=== PATIENT | female | born 1940 | race Two or more races ===

== ENCOUNTER 2019-05-26 12:06 | Emergency (ER) | payer MEDICARE, OTHER ==
[~2019-05-26] VITALS: Wt 110.0 kg
[~2019-05-26 12:06] MED LIST: ACET500C5 PO; AMLO5TAB4; BENA20TA65; CARI350T; CELE200C; CEPH-443 PO; CLON-379; DICL100G9; DONE10TA7; DULO60CA6; GABA100C; HYDR-3980 PO; LIDO700A6; MELO15TA30; METO-407; NAR2I NS; NEOM28OI2 TP; OLAN5TAB19; RTPRO5; SENN-8; SIMV20TA; SOLI5TAB2; TRIA1CAP56; VIC
[2019-05-26 12:22] VITALS: BP 147/73; PULSE 89; RESP 18
== END 2019-05-26 12:43 | disposition home or self-care (01) ==
LOC: FTE 12:06 → E/R 12:43
DX: Z48.01 Encounter for change or removal of surgical wound dressing (principal); J45.909 Unspecified asthma, uncomplicated; I10 Essential (primary) hypertension; I25.10 Atherosclerotic heart disease of native coronary artery without angina pectoris
CPT/HCPCS: 99283